=== PATIENT | female | born 1970 | race Caucasian/White ===

== ENCOUNTER 2018-03-20 18:35 | Emergency (ER) | payer MEDICAID ==
[~2018-03-20] VITALS: Ht 149.9 cm; Wt 973.4 kg
[2018-03-20 20:29] LABS: BASOPHIL % 0.6 % (0-2); PLATELET COUNT 248 x10^3mcL (130-400); RED CELL DISTRIBUTION WIDTH 12.3 % (11.5-14.5)
[2018-03-20 20:38] LABS: CALCIUM 8.3 mg/dL (8.5-10.1); CHLORIDE SERUM 105 mmol/L (98-107); CREATININE SERUM 0.8 mg/dL (0.6-1.0); GFR1 > 60 mL/min; GLUCOSE SERUM 107 mg/dL (74-106); POTASSIUM SERUM 3.3 mmol/L (3.5-5.1); SODIUM SERUM 141 mmol/L (136-145)
[2018-03-20 20:42] LABS: ALBUMIN 3.4 g/dL (3.4-5.0); ALKALINE PHOSPHATASE 67 U/L (46-116); ALT/SGPT 48 U/L (14-59); AST/SGOT 20 U/L (15-37); BILIRUBIN TOTAL 0.2 mg/dL (0.20-1.00); CHOLESTEROL 200 mg/dL (<200); CHOLESTEROL/HDL RATIO 4.4; HDL CHOLESTEROL 45 mg/dL (40-60); LIPASE 94 IU/L (73-393); TOTAL PROTEIN, SERUM 6.9 g/dL (6.4-8.2); TRIGLYCERIDES 112 mg/dL (<150)
[2018-03-20 20:52] LABS: T3 TOTAL 1.02 ng/mL
[2018-03-20 20:53] LABS: FREE T4 0.94 ng/dL (0.76-1.46); FREE THYROXINE INDEX 2.5 ug/dL (1.4-4.5); T4(THYROXINE) 7.1 ug/dL (4.7-13.3)
[2018-03-20 21:10] LABS: microscopic required? NO
[2018-03-20 21:26] LABS: UA SPECIFIC GRAVITY >=1.030 (1.005-1.035); urine erythrocyte NEGATIVE (NEGATIVE)
[2018-03-20 23:17] VITALS: BP 98/59
== END 2018-03-20 23:17 | disposition home or self-care (01) ==
LOC: ED 18:35
PROVIDERS: Specialist
DX: R07.89 Other chest pain (principal); Z88.6 Allergy status to analgesic agent; Z88.1 Allergy status to other antibiotic agents; Z88.8 Allergy status to other drugs, medicaments and biological substances
CPT/HCPCS: 83880; 84439; J1885; J7030

== ENCOUNTER 2020-12-03 05:47 | Emergency (ER) | payer SELFPAY ==
[~2020-12-03] VITALS: Ht 149.9 cm; Wt 68.0 kg
[2020-12-03 06:06] VITALS: Ht 149.9 cm; Wt 68.0 kg
[2020-12-03] MEDS ORDERED: IBU400 M2 PO (07:28)
[2020-12-03] MEDS ORDERED: NASAL MIST126 ML (07:28)
[2020-12-03 10:01] VITALS: BP 102/57
== END 2020-12-03 08:00 | disposition home or self-care (01) ==
LOC: ED 05:47
DX: M75.31 Calcific tendinitis of right shoulder (principal); Z88.1 Allergy status to other antibiotic agents; Z90.710 Acquired absence of both cervix and uterus
CPT/HCPCS: J2001; J3301